=== PATIENT | male | born 1985 | race Caucasian/White ===

== ENCOUNTER 2016-07-15 17:03 | Emergency (ER) | payer MEDICARE, MEDICAID ==
--- NOTE | 2016-08-06 08:06 | ER ---
ADMIT: 07/15/2016 RM/LOC: ER [facility] MR#: [id number] [id number] LAYLA GLYNNANJANA Gerardo [address] [place] [address] Emergency Room Report SEX: M AGE: 31 : 1985 DATE: 07/15/2016 ADDENDUM: HISTORY OF PRESENT ILLNESS: This patient comes to the ER because he is having chest pain that started today. He states he has had a cough for the last 3 days. He feels like his heart is racing and he is having muscle spasms on the left side of his chest. He also has a cough that is a dry cough. PHYSICAL EXAMINATION: GENERAL: This is an alert, obese 31-year-old white male. CHEST: Most of his pain is in the left chest area, and I am able to reproduce the pain with palpation. His D-dimer was 0.21. Cardiac enzymes were normal and CBC was normal. He was given tramadol 2 tabs in the ER, which did help his pain. I did consult with Dr. Manzo concerning treatment of this patient. DIAGNOSIS: Chest wall pain. PLAN: I did write a prescription for tramadol, and he is to follow up with his primary in the next week if not feeling better. Please see my T-sheet. ALMA DELIA Schneider / Virgilio Manzo MD / tiffanil JOB #: [id number] CC: Virgilio Manzo MD, Attending Physician Dyllan Torres MD, Family Physician
== END 2016-07-15 19:00 | disposition home or self-care (01) ==
LOC: ER 17:03
DX: R07.89 Other chest pain (principal); I10 Essential (primary) hypertension; Z88.0 Allergy status to penicillin; Z88.2 Allergy status to sulfonamides; Z88.5 Allergy status to narcotic agent; Z79.899 Other long term (current) drug therapy

== ENCOUNTER 2016-10-03 15:49 | Emergency (ER) | payer MEDICARE, MEDICAID | END 2016-10-03 16:25 | disposition home or self-care (01) | DX: M25.531 Pain in right wrist (principal); M25.532 Pain in left wrist; M70.941 Unspecified soft tissue disorder related to use, overuse and pressure, right hand; M70.942 Unspecified soft tissue disorder related to use, overuse and pressure, left hand; I10 Essential (primary) hypertension; F31.9 Bipolar disorder, unspecified; F42.9 Obsessive-compulsive disorder, unspecified; F32.9 Major depressive disorder, single episode, unspecified; Z88.0 Allergy status to penicillin; Z88.2 Allergy status to sulfonamides; Z88.6 Allergy status to analgesic agent ==